=== PATIENT | male | born 1970 | race Caucasian/White ===

== ENCOUNTER 2018-03-24 22:33 | Emergency (ER) | payer SELFPAY ==
[2018-03-24] MEDS ORDERED: NA CHLORIDE 0.9% 1,000 ML ONE (23:00)
[2018-03-24] MEDS ORDERED: ONDANSETRON 4 MG/2 ML VIAL ONE (23:00)
[2018-03-24] MEDS ORDERED: FAMOTIDINE 20 MG/2 ML VIAL IV ONE (23:00)
[2018-03-24 23:15] LABS: Absolute Lymphocytes (CBC) 2.7 K/uL (0.7-4.9); Absolute Monocytes 1.3 K/uL (0.1-1.3); Absolute Neutrophil 10.2 K/uL (1.8-8.0); Basophils % 0.6 % (0-1.3); Eosinophils % 1.4 % (0-4.4); Lymphocytes % 18.9 % (15.3-44.8); MCH 31.5 pg (27.0-35.0); MCV 89.3 fL (80-100); MPV 8.8 fL (7.6-11.3); Monocytes % 8.8 % (3.3-12.3); RBC Red Blood Cell Count 5.49 M/uL (4.33-5.43)
[2018-03-24 23:33] LABS: Bilirubin Direct 0.2 mg/dL (0-0.2); Bilirubin Total 0.6 mg/dL (0.2-1.0); Potassium 3.6 mmol/L (3.5-5.1); Protein, Total 8.4 g/dL (6.4-8.2)
--- NOTE | 2018-03-25 02:03 | EDPHYS ---
Physician Documentation [facility] Name: Darrian Amaro Jr Age: 48 yrs Sex: Male : 1970 Arrival Date: 03/24/2018 Time: 22:36 Bed 5 Private MD: ED Physician Seth Liao HPI: 03/24 22:50 This 48 yrs old Male presents to ER via EMS with complaints of Abdominal Pain.cp Historical: - Allergies: 22:38 No Known Allergies; bp - Home Meds: 22:38 None [Active]; bp - PMHx: 22:38 None; bp - Immunization history:: Adult Immunizations up to date. - Social history:: Smoking status: Patient uses tobacco products, denies chronic smoking, but will smoke occasionally. - Ebola Screening: : Patient negative for fever greater than or equal to 101.5 degrees Fahrenheit, and additional compatible Ebola Virus Disease symptoms Patient denies exposure to infectious person Patient denies travel to an Ebola-affected area in the 21 days before illness onset No symptoms or risks identified at this time. ROS: 23:00 Constitutional: Negative for body aches, chills, fever, poor PO intake. cp 23:00 Eyes: Negative for injury, pain, redness, and discharge. cp 23:00 ENT: Negative for drainage from ear(s), ear pain, sore throat, difficulty swallowing, difficulty handling secretions. 23:00 Cardiovascular: Negative for chest pain, edema, palpitations. 23:00 Respiratory: Negative for cough, shortness of breath, wheezing. 23:00 Abdomen/GI: Positive for abdominal pain, nausea, Negative for vomiting, diarrhea, constipation, anorexia, dysphagia, black/tarry stool, rectal bleeding. 23:00 Back: Negative for pain at rest, pain with movement, radiated pain. 23:00 : Negative for urinary symptoms, testicular pain 23:00 Skin: Negative for cellulitis, rash. 23:00 Neuro: Negative for dizziness, headache, weakness. 23:00 All other systems are negative. Exam: 23:05 Head/Face: Normocephalic, atraumatic. cp 23:05 Constitutional: The patient appears in no acute distress, alert, awake, non-diaphoretic, non-toxic, well developed, well nourished. 23:05 Eyes: Periorbital structures: appear normal, Conjunctiva: normal, no exudate, no cp injection, Sclera: no appreciated abnormality, Lids and lashes: appear normal, bilaterally. 23:05 ENT: External ear(s): are unremarkable, Nose: is normal, Mouth: Lips: moist, Oral mucosa: moist, Posterior pharynx: is normal, airway is patent, no erythema, no exudate. 23:05 Neck: ROM/movement: is normal, is supple, without pain, no range of motions limitations, no nuchal rigidity. 23:05 Chest/axilla: Inspection: normal, Palpation: is normal, no crepitus, no tenderness. 23:05 Cardiovascular: Rate: normal, Rhythm: regular, Edema: is not appreciated, JVD: is not appreciated. 23:05 Respiratory: the patient does not display signs of respiratory distress, Respirations: normal, no use of accessory muscles, no retractions, no splinting, no tachypnea, labored breathing, is not present, Breath sounds: are clear throughout, no decreased breath sounds, no stridor, no wheezing. 23:05 Abdomen/GI: Inspection: abdomen appears normal, Bowel sounds: active, all quadrants, Palpation: soft, in all quadrants, moderate abdominal tenderness, in the right upper quadrant and right lower quadrant, rebound tenderness, is not appreciated, involuntary guarding, is not appreciated. 23:05 Back: pain, is absent, ROM is normal. 23:05 Skin: cellulitis, is not appreciated, no rash present. Vital Signs: 22:38 BP 163 / 98; Pulse 95; Resp 14; Temp 98.3; Pulse Ox 96% ; Weight 74.84 kg; Height 6 ft. bp 1 in. (185.42 cm); 23:48 BP 170 / 99; Pulse 66; Resp 14; Pulse Ox 96% ; bp 03/25 00:45 BP 164 / 102; Pulse 65; Resp 14; Pulse Ox 97% ; bp 02:09 BP 148 / 63; Pulse 61; Resp 14; Pulse Ox 98% ; bp 03/24 22:38 Body Mass Index 21.77 (74.84 kg, 185.42 cm) bp MDM: 03/24 22:38 Patient medically screened. cp 03/25 02:00 Data reviewed: vital signs, nurses notes, lab test result(s), radiologic studies, CT cp scan, and as a result, I will discharge patient. 02:00 Special discussion: Based on the patient's Hx, exam, and Dx evaluation, there is no cp indication for emergent surgery or inpatient Tx. It is understood by the patient/guardian that if the Sx's persist or worsen they need to return immediately for re-evaluation. 03/24 22:41 Order name: Amylase, Serum; Complete Time: 23:51 cp 03/24 22:41 Order name: Basic Metabolic Panel; Complete Time: 23:51 cp 03/24 23:52 Interpretation: Normal except: GLUC 124; GFR 80. cp 03/24 22:41 Order name: CBC with Diff; Complete Time: 23:51 cp 03/24 23:52 Interpretation: Normal except: WBC 14.5; RBC 5.49; PLT 131; NEUT A 10.2. cp 03/24 22:41 Order name: Creatinine for Radiology; Complete Time: 23:51 cp 03/24 22:41 Order name: Hepatic Function; Complete Time: 23:51 cp 03/24 23:52 Interpretation: Normal except: ALK 144; TP 8.4; GLOB 4.4; A/G 0.9. cp 03/24 22:41 Order name: Lipase; Complete Time: 23:51 cp 03/25 01:52 Interpretation: Within normal limits: LIP 108. cp 03/24 22:41 Order name: Urine Microscopic Only cp 03/24 22:41 Order name: IV Saline Lock; Complete Time: 23:14 cp 03/24 22:41 Order name: Labs collected and sent; Complete Time: 23:14 cp 03/24 22:50 Order name: CT Abd/Pelvis - W/Contrast cp 03/24 22:41 Order name: Urine Dipstick-Ancillary (obtain specimen); Complete Time: 23:14 cp 03/25 01:49 Order name: PO challenge; Complete Time: 02:11 cp Administered Medications: 03/24 23:10 Drug: NS 0.9% 1000 ml Route: IV; Rate: 1 bolus; Site: right forearm; bp 03/25 00:00 Follow up: IV Status: Completed infusion; IV Intake: 1000ml bp 03/24 23:10 Drug: Zofran 4 mg Route: IVP; Site: right forearm; bp 03/25 02:11 Follow up: Response: Nausea is decreased bp 03/24 23:10 Drug: Pepcid 20 mg Route: IVP; Site: right forearm; bp 03/25 02:12 Follow up: Response: Pain is decreased bp 00:15 Drug: NS 0.9% 1000 ml Route: IV; Rate: 125 ml/hr; Site: right forearm; bp 02:11 Follow up: IV Status: Completed infusion; IV Intake: 250ml bp Disposition: 03:03 Co-signature as Attending Physician, Seth Liao MD I agree with the assessment and tw4 plan of care. Attestation: The patient's history, exam findings, diagnostics, and a summary of any interventions or procedures was reviewed in detail with Milind ELIZALDE. Disposition: 03/25/18 02:02 Discharged to Home. Impression: Other abdominal pain - Right, Nausea. - Condition is Stable. - Discharge Instructions: Abdominal Pain, Adult, Nausea, Adult. - Prescriptions for Bentyl 20 mg Oral Tablet - take 1 tablet by ORAL route every 6 hours As needed; 20 tablet. Zofran 4 mg Oral Tablet - take 1 tablet by ORAL route every 12 hours As needed; 20 tablet. - Medication Reconciliation Form, Thank You Letter, Antibiotic Education, Prescription Opioid Use form. - Follow up: Private Physician; When: 1 - 2 days; Reason: Recheck today's complaints. - Problem is new. - Symptoms have improved. Signatures: Dispatcher [employer] EDMS Milind Etienne PA PA cp Peltier, Brian, RN RN Seth Almaguer MD MD tw4 Corrections: (The following items were deleted from the chart) 03/24 23:52 23:52 Normal except: WBC 14.5; RBC 5.49; PLT 131. cp cp 03/25 02:03 02:02 03/25/2018 02:02 Discharged to Home. Impression: Other abdominal pain - Right. cp Condition is Stable. Forms are Medication Reconciliation Form, Thank You Letter, Antibiotic Education, Prescription Opioid Use. Follow up: Private Physician; When: 1 - 2 days; Reason: Recheck today's complaints. Problem is new. Symptoms have improved. cp 02:12 02:03 03/25/2018 02:02 Discharged to Home. Impression: Other abdominal pain - Right; bp Nausea. Condition is Stable. Discharge Instructions: Abdominal Pain, Adult, Nausea, Adult. Prescriptions for Bentyl 20 mg Oral Tablet - take 1 tablet by ORAL route every 6 hours As needed; 20 tablet, Zofran 4 mg Oral Tablet - take 1 tablet by ORAL route every 12 hours As needed; 20 tablet. and Forms are Medication Reconciliation Form, Thank You Letter, Antibiotic Education, Prescription Opioid Use. Follow up: Private Physician; When: 1 - 2 days; Reason: Recheck today's complaints. Problem is new. Symptoms have improved. cp
--- NOTE | 2018-03-25 02:03 | ER ---
Nurse's Notes [facility] Name: Darrian Amaro Jr Age: 48 yrs Sex: Male : 1970 Arrival Date: 03/24/2018 Time: 22:36 Bed 5 Private MD: Diagnosis: Other abdominal pain-Right;Nausea Presentation: 03/24 22:36 Presenting complaint: Patient states: RIGHT UPPER QUADRANT PAIN SINCE YESTERDAY. bp Transition of care: patient was not received from another setting of care. Onset of symptoms was March 23, 2018. Risk Assessment: Do you want to hurt yourself or someone else? Patient reports no desire to harm self or others. Initial Sepsis Screen: Does the patient meet any 2 criteria? No. Patient's initial sepsis screen is negative. Does the patient have a suspected source of infection? No. Patient's initial sepsis screen is negative. Care prior to arrival: Glucose check: 109. 22:36 Method Of Arrival: EMS: [facility] [place] [place] [facility] bp 22:36 Acuity: EDY 3 bp Triage Assessment: 22:38 General: Appears in no apparent distress. comfortable, Behavior is calm, cooperative, bp appropriate for age. Pain: Complains of pain in right upper quadrant. EENT: No deficits noted. Neuro: Level of Consciousness is awake, alert, obeys commands, Oriented to person, place, time, situation, Appropriate for age. Cardiovascular: No deficits noted. Respiratory: Airway is patent Respiratory effort is even, unlabored, Respiratory pattern is regular, symmetrical. GI: Reports upper abdominal pain, Patient currently denies diarrhea, nausea, vomiting. : No signs and/or symptoms were reported regarding the genitourinary system. Derm: No deficits noted. Musculoskeletal: Circulation, motion, and sensation intact. Range of motion: intact in all extremities. Historical: - Allergies: 22:38 No Known Allergies; bp - Home Meds: 22:38 None [Active]; bp - PMHx: 22:38 None; bp - Immunization history:: Adult Immunizations up to date. - Social history:: Smoking status: Patient uses tobacco products, denies chronic smoking, but will smoke occasionally. - Ebola Screening: : Patient negative for fever greater than or equal to 101.5 degrees Fahrenheit, and additional compatible Ebola Virus Disease symptoms Patient denies exposure to infectious person Patient denies travel to an Ebola-affected area in the 21 days before illness onset No symptoms or risks identified at this time. Screenin:41 Abuse screen: Denies threats or abuse. Denies injuries from another. Nutritional bp screening: No deficits noted. Tuberculosis screening: No symptoms or risk factors identified. Fall Risk None identified. Assessment: 22:41 General: 48YO WM P/W 1 DAY OF RUQ PAIN, DENIES N/V/D. NO SIGNIFICANT MED HX. bp 23:15 Reassessment: PT COMPLETED PO CONTRAST, CT NOTIFIED. bp 23:48 Reassessment: CT PENDING. VS STABLE ON MONITOR. bp 03/25 00:00 GI: Bowel sounds present X 4 quads. Abd is soft X 4 quads. bp 00:44 Reassessment: PT RESTING QUIETLY, RESULTS PENDING. VS STABLE. 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 bp 02:08 Reassessment: PO CHALLENGE SUCCESSFUL. PT D/C HOME AMBULATORY, DX WITH UNSPECIFIC bp ABDOMINAL PAIN. Vital Signs: 03/24 22:38 BP 163 / 98; Pulse 95; Resp 14; Temp 98.3; Pulse Ox 96% ; Weight 74.84 kg; Height 6 ft. bp 1 in. (185.42 cm); 23:48 BP 170 / 99; Pulse 66; Resp 14; Pulse Ox 96% ; bp 03/25 00:45 BP 164 / 102; Pulse 65; Resp 14; Pulse Ox 97% ; bp 02:09 BP 148 / 63; Pulse 61; Resp 14; Pulse Ox 98% ; bp 03/24 22:38 Body Mass Index 21.77 (74.84 kg, 185.42 cm) bp ED Course: 03/24 22:36 Patient arrived in ED. bp 22:36 Milind Etienne PA is PHCP. cp 22:36 Seth Liao MD is Attending Physician. cp 22:37 Triage completed. bp 22:38 Arm band placed on right wrist. bp 22:41 Patient has correct armband on for positive identification. Bed in low position. Call bp light in reach. Side rails up X2. 22:56 Oral contrast given. jg6 23:00 Missed attempt(s): 20 gauge in right forearm. Bleeding controlled, band aid applied, jd3 catheter tip intact. Missed attempt(s): 20 gauge in right antecubital area. Bleeding controlled, band aid applied, catheter tip intact. 23:12 Rafael Gregory, RN is Primary Nurse. bp 23:13 Inserted saline lock: 22 gauge in right forearm, using aseptic technique. Blood bp collected. 03/25 00:44 Patient moved to [place] via stretcher. 00:57 CT completed. Patient tolerated procedure well. Patient moved back from UT. 01:03 CT Abd/Pelvis - W/Contrast In Process Unspecified. EDMS 02:09 No provider procedures requiring assistance completed. IV discontinued, intact, bp bleeding controlled, No redness/swelling at site. Pressure dressing applied. Administered Medications: 03/24 23:10 Drug: NS 0.9% 1000 ml Route: IV; Rate: 1 bolus; Site: right forearm; bp 03/25 00:00 Follow up: IV Status: Completed infusion; IV Intake: 1000ml bp 03/24 23:10 Drug: Zofran 4 mg Route: IVP; Site: right forearm; bp 03/25 02:11 Follow up: Response: Nausea is decreased bp 03/24 23:10 Drug: Pepcid 20 mg Route: IVP; Site: right forearm; bp 03/25 02:12 Follow up: Response: Pain is decreased bp 00:15 Drug: NS 0.9% 1000 ml Route: IV; Rate: 125 ml/hr; Site: right forearm; bp 02:11 Follow up: IV Status: Completed infusion; IV Intake: 250ml bp Intake: 00:00 IV: 1000ml; Total: 1000ml. bp 02:11 IV: 250ml; Total: 1250ml. bp Outcome: 02:02 Discharge ordered by MD. cp 02:09 Discharged to home ambulatory. bp 02:09 Condition: stable 02:09 Discharge instructions given to patient, Instructed on discharge instructions, follow up and referral plans. medication usage, Demonstrated understanding of instructions, follow-up care, medications, Prescriptions given X 2. 02:12 Patient left the ED. bp Signatures: Dispatcher [employer] EDMA Dante Lieberman Milind Etienne PA PA cp Davies, Jonathon, RN RN jd3 Rafael Gregory, RN RN Mary Minor [id number] Corrections: (The following items were deleted from the chart) 03/24 23:14 22:10 Pepcid 20 mg IVP in right forearm bp bp
[2018-03-25 02:11] LABS: Urine Bacteria <20 /HPF (NONE SEEN); Urine Culture Reflex Order NOT NEEDED; Urine RBC <5 /HPF (NONE SEEN)
--- NOTE | 2018-03-25 09:01 | RAD REPORT ---
EXAM DESCRIPTION: CT - Abdomen Pelvis W Contrast - 03/25/2018 4:37 am CLINICAL HISTORY: right side abdomen painAbdominal pain/right upper quadrant pain since yesterday COMPARISON: None TECHNIQUE: Computed axial tomography of the abdomen and pelvis was obtained. 100 cc Isovue-300 is ad ministered intravenously. Oral contrast was given. Preliminary report was generated by [employer] and reviewed prior to this dictation All CT scans are performed using dose optimization technique as appropriate and may include automated exposure control or mA/KV adjustment according to patient size. FINDINGS: The liver has a diminished attenuation consistent with fatty infiltration Spleen, adrenals and kidneys appear unremarkable. Mild stranding is present adjacent to the pancreatic head and body. Pseudocyst is not seen. Pancreas is normal size. The appendix is normal caliber. There is no evidence of diverticulitis Small inguinal hernias contain fat. A tiny umbilical hernia is present IMPRESSION: Mild pancreatitis
== END 2018-03-25 02:12 | disposition home or self-care (01) ==
LOC: ER 22:33
DX: R11.0 Nausea (principal); Z72.0 Tobacco use
CPT/HCPCS: 36415; 74177; 80048; 80076; 81015; 82150; 83690; 85025; 96361; 96374; 96375; 99284; J2405; J7030; Q9967